=== PATIENT | male | born 2005 | race Caucasian/White ===

== ENCOUNTER 2024-08-11 10:07 | Emergency (ER) | payer OTHER, SELFPAY ==
--- NOTE | ~2024-08-11 | XR_ITS ---
Exam: Abdomen 1V HISTORY: diarrhea, ABD cramping COMPARISON: None. TECHNIQUE: Supine images of the abdomen FINDINGS: Bowel gas pattern within the abdomen is unremarkable. Abnormal gas pattern within the deep pelvis, possibly associated with patient's symptoms. There is no free air or deep sulci. No pathologic calcifications are seen. Lung bases are unremarkable. Bones and soft tissues are unremarkable. IMPRESSION: Abnormal bowel gas pattern within the deep pelvis, as detailed above. Reviewed, dictated and finalized at location A.
[2024-08-11 10:15] VITALS: BP 134/81; PULSE 83; RESP 18; TEMP 36.8; O2SAT 100
--- NOTE | 2024-08-11 10:32 | ED_ITS ---
HPI - Abdominal Pain General Chief Complaint: Abdominal Pain Stated Complaint: Abdominal Discomfort Time Seen by Provider: 08/11/24 10:32 Source: patient Mode of arrival: ambulatory Limitations: no limitations History of Present Illness HPI narrative: 19-year-old male presents with complaint of diarrhea for 3 days. Reports intermittent abdominal cramping. Abdominal cramping mostly bright before having a bowel movement. reports bowel movements after eating or when more active and up and moving about. Reports 8 bowel movements the 1st day 6 bowel movements yesterday and 3 bowel movements today. Drinking plenty fluids. No abdominal pain at this time. Patient reports that he cooked himself some to [employer] a and is concerned for parasites . All systems reviewed and negative except as noted above. Related Data Home Medications ?Medication ?Instructions ?Recorded ?Confirmed ?Last Taken ?Type No Home Medications 08/11/24 08/11/24 Unknown History Allergies Allergy/AdvReac Type Severity Reaction Status Date / Time lotions Allergy Intermediate Rash Uncoded 08/11/24 10:30 Review of Systems Review of Systems: CONSTITUTIONAL: Denies fever, chills, or sweats. EYES: Denies visual changes, redness, or discharge. ENT: Denies rhinorrhea, congestion, sore throat, or otalgia. CARDIOVASCULAR: Denies chest pain, palpitations, or edema. RESPIRATORY: Denies cough or dyspnea. GASTROINTESTINAL: Reports abdominal pain, diarrhea. Denies nausea, vomiting GENITOURINARY: Denies dysuria or hematuria. SKIN: Denies rash or itching. MUSCULOSKELETAL: Denies back pain, joint pain, or myalgia. NEUROLOGIC: Denies headache, numbness, or weakness. PSYCHIATRIC: Denies anxiety or depression. All other systems reviewed are negative, except as documented in HPI. PMFSH Comments At time of signature, agree with nursing past medical, surgical, social and family history. There is no relevant family history pertinent to the presenting complaint. Exam Narrative: GENERAL: This is a well-nourished, well-developed patient, in no apparent distress. HEAD: normocephalic, atraumatic. EYES: PERRL. Sclera clear/white. Vision is grossly intact. EARS: External ears normal NOSE: External nose normal NECK: Neck supple, non-tender without lymphadenopathy, masses or thyromegaly. CARDIOVASCULAR: Regular rate and rhythm without murmurs, gallops, or rubs. RESPIRATORY: Clear to auscultation. Breath sounds equal bilaterally. No wheezes, rales, or rhonchi. GASTROINTESTINAL: Abdomen soft, non-tender, nondistended. Bowel sounds are active. No hepato-splenomegaly, or palpable masses. No guarding. SKIN: warm, Dry, intact with no suspicious lesions or rash, good texture and turgor. NEURO: awake, alert, and oriented to person, place and time. There were no obvious focal neurologic abnormalities. EXTREMITIES: No joint tenderness, effusion, or edema noted. Course Course Level of Care: Express Care Visit Vital Signs Vital signs: Vital Signs Temperature 36.8 C 08/11/24 10:15 Pulse Rate 83 08/11/24 10:15 Respiratory Rate 18 08/11/24 10:15 Blood Pressure 134/81 08/11/24 10:15 Pulse Oximetry 100 08/11/24 10:15 Oxygen Delivery Room Air 08/11/24 10:15 Temperature 36.8 C 08/11/24 10:15 Pulse Rate 83 08/11/24 10:15 Respiratory Rate 18 08/11/24 10:15 Blood Pressure 134/81 08/11/24 10:15 Pulse Oximetry 100 08/11/24 10:15 Oxygen Delivery Room Air 08/11/24 10:15 reviewed Transfer Transfered to: [facility] Transportation: Other (private car) Transfer rationale: KUB abnormal bowel gas pattern deep pelvis per radiologist, transferring to ER for CT scan Accepting physician: Dr. Alvarez MDM - Abdominal Pain MDM Narrative Medical decision making narrative: transferring pt to ER for rule out obstruction/perforation. abnormal bowel gas pattern on KUB. pt is well appearing, nontoxic. Please be advised this is a medical document. It is intended for [id number]-ohko communication. It is written in medical language and may contain unfamiliar abbreviations or verbiage. Medical documents are intended to carry relevant information, facts as evident, and the clinical opinion of the practitioner at the time of the encounter. This report may have been done utilizing a voice recognition system. Attempts have been made to correct errors. However, there may be uncorrected grammatical, spelling, and recognition errors present. The file time of this note does not necessarily represent the time of service. Differential Diagnosis Differential diagnosis: Likely abdominal pain, constipation and small bowel obstruction Imaging Data Radiologist's impression: ITS Impressions Abdomen X-Ray 08/11/24 11:22 IMPRESSION: Abnormal bowel gas pattern within the deep pelvis, as detailed above. Discharge Plan Discharge Clinical Impression: Diarrhea Patient Disposition: Acute Care Hospital Condition: Stable Additional Instructions: GO DIRECTLY TO [facility] ER. DO NOT HAVE ANYTHING TO EAT OR DRINK. Patient Language: Eritrean Prescriptions: No Action No Home Medications Follow-up/Referrals: PHYSICIAN,SENIOR INSTRUCTOR [Primary Care Provider] - Stand Alone Forms: Work/School Release IP Time of Disposition: 11:37
--- NOTE | 2024-08-11 11:53 | PC.NURSE ---
initially stated was unable to go to er for further evaluation. is waiting to speak with employer. mother at bedside and pt will notify staff upon decision.
== END 2024-08-11 12:10 | disposition short-term general hospital (02) ==
PROVIDERS: Emergency Provider Nurse Practitioner Family
DX: R19.7 Diarrhea, unspecified (principal)
CPT/HCPCS: 74018; 99203; G0463

== ENCOUNTER 2024-09-09 18:58 | Emergency (ER) | payer OTHER, SELFPAY ==
--- OUTSIDE RECORDS SUMMARY | 2024-09-09 19:00 | XMS_ITS | Clinical Summary ---
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 Machine Operator Name Role Phone Provider, None Primary Care Provider Unavailabl e Allergies No known active allergies Medications No known medications Encounters Date Type Department Care Team Description 08/11/2024 1:14 PM CDT - 08/11/2024 3:42 PM CDT Emergency [facility] Emergency [address] [place] [address] Myra Abdul MD Diarrhea, unspecified type Discharge Disposition: Discharged to home or Selfcare 08/11/2024 Travel from Last 3 Months Social History Tobacco Use Types Packs/Day Years Used Date Smoking Tobacco: Never Assessed Sex and Gender Information Value Date Recorded Sex Assigned at Not on file Legal Sex Male 1:04 PM CDT Gender Identity Not on file Sexual Orientation Not on file Last Filed Vital Signs Vital Sign Reading Time Taken Comments Blood Pressure 142/73 08/11/2024 3:37 PM CDT Pulse 72 08/11/2024 3:37 PM CDT Temperature 37 C (98.6 F) 08/11/2024 1:11 PM CDT Respiratory Rate 16 08/11/2024 3:37 PM CDT Oxygen Saturation 99% 08/11/2024 3:37 PM CDT Inhaled Oxygen Concentration - - Weight 74.8 kg (165 lb) 08/11/2024 1:11 PM CDT Height 177.8 cm (5' 10 ) 08/11/2024 1:11 PM CDT Body Mass Index 23.68 08/11/2024 1:11 PM CDT Plan of Treatment Health Maintenance Due Date Last Done Comments Hepatitis C Virus (HCV) Screening 2004 TdaP Immunization 2004 Human Papillomavirus (HPV) Immunization (1 - Male 3-dose series) 01/07/2019 Meningococcal B Immunization (1 of 2 - Standard) 2020 Hepatitis B Immunization (1 of 3 - 19+ 3-dose series) 01/07/2023 SARS-COV-2 Immunization (1 - season) 2024 Influenza Immunization (Seas on Ended) 2025 Respiratory Syncytial Virus (RSV) Immunization (Adult) (1 - 1-dose 75+ series) 01/07/2079 Meningococcal Immunization (ACWY) Aged Out No longer eligible based on patient's age to complete this topic Pneumococcal Immunization Combined Aged Out No longer eligible based on patient's age to complete this topic Rotavirus Immunization Aged Out No lo nger eligible based on patient's age to complete this topic Procedures Procedure Name Priority Date/Time Associated Diagnosis Comments CT ABDOMEN PELVIS W/ CONTRAST Stat with Interpretation 08/11/2024 2:26 PM CDT URINALYSIS REFLEX IF INDICATED BY ABNORMAL RESULTS STAT 08/11/2024 2:20 PM CDT CBC WITH AUTO DIFFERENTIAL STAT 08/11/2024 1:24 PM CDT LIPASE STAT 08/11/2024 1:24 PM CDT CMP (COMPREHENSIVE METABOLIC PANEL) STAT 08/11/2024 1:24 PM CDT COMPLETE BLOOD COUNT (CBC) WITH DIFF STAT 08/11/2024 1:24 PM CDT from Last 3 Months Results * CT ABDOMEN PELVIS W/ CONTRAST (08/11/2024 2:26 PM CDT) Anatomical Region Laterality Modality Abdomen N/A Computed Tomogra phy 08/11/2024 3:00 PM CDT Impressions 08/11/2024 3:02 PM CDT IMPRESSION: No acute finding. Narrative 08/11/2024 3:02 PM CDT EXAM DESCRIPTION: CT ABDOMEN PELVIS W/ CONTRAST REASON FOR STUDY: Abdominal pain TECHNIQUE: CT scan of the abdomen and pelvis performed with intravenous and without oral contrast using helical scanning technique with dynamic intravenous contrast injection. Reconstructed coronal and sagittal MPR images reviewed. All images stored on PACS. Automated exposure control was used as a dose optimization technique for this examination. CONTRAST TYPE/DOSE: 83mL of IOPAMIDOL 76 % IV SOLN injected via Intravenous COMPARISON: None FINDINGS: LOWER CHEST: No significant pulmonary abnormalities. No effusion. LIVER: Normal size. No identified cystic or solid masses. GALLBLADDER: No stones identified. No wall thickening or inflammatory changes. BILE DUCTS: No intrahepatic or extrahepatic ductal dilatation. SPLEEN: Normal size. No focal lesions. PANCREAS: No identified cystic or solid masses. No significant calcifications. No adjacent inflammation or peripancreatic fluid collections. Pancreatic duct not dilated. ADRENALS: Normal. KIDNEYS/URINARY TRACT: No identified significant cystic or solid masses. No visualized stones. No hydronephrosis or hydroureter. Symmetric enhancement. Urinary bladder is unremarkable. GI: No dilated bowel loops. No obvious wall thickening. Normal appendix. No significant diverticular disease. PERITONEUM: No ascites or free air. RETROPERITONEUM: No mass or adenopathy. REPRODUCTIVE: No significant abnormality. VASCULATURE: No abdominal aortic aneurysm. MUSCULOSKELETAL: No significant abnormality. OTHER: No other abnormality. THIS IS AN ELECTRONICALLY VERIFIED FINAL REPORT 08/11/2024 3:00 PM - Electronically signed by Balta Castro M.D. JA: CATA Report ID: [id number] Reading Location: [id number] Procedure Note Balta Castro MD - 08/11/2024 EXAM DESCRIPTION: CT ABDOMEN PELVIS W/ CONTRAST REASON FOR STUDY: Abdominal pain TECHNIQUE: CT scan of the abdomen and pelvis performed with intravenous and without oral contrast using helical scanning technique with dynamic intravenous contrast injection. Reconstructed coronal and sagittal MPR images reviewed. All images stored on PACS. Automated exposure control was used as a dose optimization technique for this examination. CONTRAST TYPE/DOSE: 83mL of IOPAMIDOL 76 % IV SOLN injected via Intravenous COMPARISON: None FINDINGS: LOWER CHEST: No significant pulmonary abnormalities. No effusion. LIVER: Normal size. No identified cystic or solid masses. GALLBLADDER: No stones identified. No wall thickening or inflammatory changes. BILE DUCTS: No intrahepatic or extrahepatic ductal dilatation. SPLEEN: Normal size. No focal lesions. PANCREAS: No identified cystic or solid masses. No significant calcifications. No adjacent inflammation or peripancreatic fluid collections. Pancreatic duct not dilated. ADRENALS: Normal. KIDNEYS/URINARY TRACT: No identified significant cystic or solid masses. No visualized stones. No hydronephrosis or hydroureter. Symmetric enhancement. Urinary bladder is unremarkable. GI: No dilated bowel loops. No obvious wall thickening. Normal appendix. No significant diverticular disease. PERITONEUM: No ascites or free air. RETROPERITONEUM: No mass or adenopathy. REPRODUCTIVE: No significant abnormality. VASCULATURE: No abdominal aortic aneurysm. MUSCULOSKELETAL: No significant abnormality. OTHER: No other abnormality. THIS IS AN ELECTRONICALLY VERIFIED FINAL REPORT 08/11/2024 3:00 PM - Electronically signed by Balta Castro M.D. JA: CATA Report ID: [id number] Reading Location: [place] [id number] IMPRESSION: No acute finding. Myra Abdul MD IMG CT ORDERABLES Final Resul t * Urinalysis w/ Reflex (08/11/2024 2:20 PM CDT) SPECIFIC GRAVITY 1.015 1.003 - 1.030 08/11/2024 3:18 PM CDT [facility] URINE PH 6.0 5.0 - 9.0 08/11/2024 3:18 PM CDT [facility] WBC ESTERASE Negative Negative 08/11/2024 3:18 PM CDT [facility] NITRITE Negative Negative 08/11/2024 3:18 PM CDT [facility] PROTEIN, RANDOM URINE Negative Negative 08/11/2024 3:18 PM CDT [facility] URINE GLUCOSE, QUAL Negative Negative 08/11/2024 3:18 PM CDT [facility] URINE KETONES Negative Negative 08/11/2024 3:18 PM CDT [facility] UROBILINOGEN Normal Normal mg/dL 08/11/2024 3:18 PM CDT [facility] URINE BLOOD Negative Negative patito/ul 08/11/2024 3:18 PM CDT [facility] URINALYSIS COLOR Yellow 08/12/19 3:18 PM CDT [facility] URINALYSIS CLARITY Clear 08/11/2024 3:18 PM CDT [facility] Urine URINE SPECIMEN / Unknown Non-Phlebotomy Collection / Unknown 08/11/2024 2:20 PM CDT 08/11/2024 2:56 PM CDT us Myra Abdul MD URINE ORDERABLES Final Result [facility] [address] [place] [address] * (ABNORMAL) CBC with Auto Differential (08/11/2024 1:24 PM CDT) WBC 16.67(H) 4.00 - 12.00 10(3)/mcL 08/11/2024 1:40 PM CDT [facility] RBC 5.16 4.40 - 5.80 10(6)/mcL 08/11/2024 1:40 PM CDT [facility] HEMOGLOBIN (HGB) 15.6 13.0 - 16.5 g/dL 08/11/2024 1:40 PM CDT [facility] HEMATOCRIT (HCT) 46.9 38.0 - 50.0 % 08/11/2024 1:40 PM CDT [facility] MCV 90.9 82.0 - 96.0 fL 08/11/2024 1:40 PM CDT [facility] MCH 30.2 26.0 - 32.0 pg 08/11/2024 1:40 PM CDT [facility] MCHC 33.3 31.0 - 36.0 g/dL 08/11/2024 1:40 PM CDT [facility] PLATELET COUNT 258 140 - 440 10(3)/[facility] 08/11/2024 1:40 PM CDT [facility] RDW 12.1 11.8 - 15.5 % 08/11/2024 1:40 PM CDT [facility] MPV 9.1 8.0 - 12.6 fL 08/11/2024 1:40 PM CDT [facility] NEUTROPHILS 73.0(H) 40.0 - 68.0 % 08/11/2024 1:40 PM CDT [facility] LYMPHOCYTES 15.0(L) 19.0 - 49.0 % 08/11/2024 1:40 PM CDT [facility] MONOCYTES 9.3 3.0 - 13.0 % 08/11/2024 1:40 PM CDT [facility] EOSINOPHILS 2.3 0.0 - 8.0 % 08/11/2024 1:40 PM CDT [facility] BASOPHILS 0.4 0.0 - 1.0 % 08/11/2024 1:40 PM CDT [facility] ABSOLUTE NEUTROPHILS 12.17(H) 1.40 - 5.30 10(3)/mcL 08/11/2024 1:40 PM CDT [facility] ABSOLUTE LYMPHOCYTES 2.50 0.90 - 3.30 10(3)/[facility] 08/11/2024 1:40 PM CDT [facility] ABSOLUTE MONOCYTES 1.55(H) 0.10 - 0.90 10(3)/mcL 08/11/2024 1:40 PM CDT [facility] ABSOLUTE EOSINOPHIL 0.38 0.00 - 0.50 10(3)/[facility] 08/11/2024 1:40 PM CDT [facility] ABSOLUTE BASOPHILS 0.07 0.00 - 0.10 10(3)/[facility] 08/11/2024 1:40 PM CDT [facility] NRBC PER 100 WBC 0 08/12/19 1:40 PM CDT [facility] Blood Venipuncture / Unknown 08/11/2024 1:24 PM CDT 08/11/2024 1:37 PM CDT Myra Abdul MD HEMATOLOGY ORDERABLES Final R esult Performing Organization Address City/[facility]/ZIP Co de Phone Number [facility] [address] [place] [address] * Lipase (08/11/2024 1:24 PM CDT) LIPASE 19 8 - 78 U/L 08/11/2024 1:59 PM CDT [facility] Blood Venipuncture / Unknown 08/11/2024 1:24 PM CDT 08/11/2024 1:37 PM CDT Myra Abdul MD CHEMISTRY ORDERABLES Final Re sult [facility] [address] [place] [address] * (ABNORMAL) CMP (08/11/2024 1:24 PM CDT) SODIUM 139 136 - 145 mmol/L 08/11/2024 1:59 PM CDT [facility] POTASSIUM 3.8 3.5 - 5.1 mmol/L 08/11/2024 1:59 PM CDT [facility] CHLORIDE 106 98 - 107 mmol/L 08/11/2024 1:59 PM CDT [facility] CO2, VENOUS 25 22 - 30 mmol/L 08/11/2024 1:59 PM CDT [facility] ANION GAP 11.8 <18.0 mmol/L 08/11/2024 1:59 PM CDT [facility] GLUCOSE 82 70 - 99 mg/dL 08/11/2024 1:59 PM CDT [facility] BUN 13 9 - 21 mg/dL 08/11/2024 1:59 PM CDT [facility] CREATININE, BLOOD 0.93 0.70 - 1.30 mg/dL 08/11/2024 1:59 PM CDT [facility] BUN/CREATININE RATIO 14 12 - 20 ratio 08/11/2024 1:59 PM CDT [facility] TOTAL PROTEIN 8.6(H) 6.0 - 8.0 g/dL 08/11/2024 1:59 PM CDT [facility] ALBUMIN 4.3 3.5 - 5.0 g/dL 08/11/2024 1:59 PM CDT [facility] A/G RATIO 1.0 1.0 - 2.2 08/11/2024 1:59 PM CDT [facility] CALCIUM 9.0 8.7 - 10.5 mg/dL 08/11/2024 1:59 PM CDT [facility] T BILI 0.3 0.2 - 1.2 mg/dL 08/11/2024 1:59 PM CDT [facility] SGOT (AST) 25 <43 U/L 08/11/2024 1:59 PM CDT [facility] SGPT (ALT) 18 <56 U/L 08/11/2024 1:59 PM CDT [facility] ALKALINE PHOSPHATASE 105 40 - 150 U/L 08/11/2024 1:59 PM CDT [facility] GFR, ESTIMATED >60 >=60 08/11/2024 1:59 PM CDT [facility] Comment: Creatinine Clearance is the preferred criteria for selecting drug dose adjustments in renally impaired patients. The GFR is provided as additional pertinent clinical information. GFR is reported in mL/min/1.73 sq m. Calculation based on the Chronic Kidney Disease Epidemiology Collaboration (CKD- EPI) equation refit without adjustment for race. GFR, EST. >60 >=60 025 1:59 PM CDT [facility] GFR, EST. NONAFRICAN >60 >=60 08/11/2024 1:59 PM CDT [facility] Blood Venipuncture / Unknown 08/11/2024 1:24 PM CDT 08/11/2024 1:37 PM CDT us Myra Abdul MD CHEMISTRY ORDERABLES Final Re sult [facility] [address] [place] [address] from Last 3 Months Insurance [facility] Care Teams Jigger Machine Operator Relationship Specialty Start Date End Date Provider, None [place] PCP - General 08/11/24
[2024-09-09 19:10] VITALS: BP 136/82; PULSE 93; RESP 16; TEMP 37.4; O2SAT 100
--- NOTE | 2024-09-09 19:18 | ED.URI ---
HPI - URI/Sore Throat General Chief Complaint: Upper Respiratory Infection Stated Complaint: sore throat Time Seen by Provider: 09/09/24 19:18 Source: patient, RN notes reviewed and old records reviewed Mode of arrival: ambulatory Limitations: no limitations History of Present Illness HPI Narrative: 19-year-old male presents to the [facility] with complaints of a sore throat for 5 days. Reports postnasal drainage patient denies any ear pain, sinus drainage. Did take some Tylenol. Denies fevers, chest pain. Related Data Home Medications ?Medication ?Instructions ?Recorded ?Confirmed ?Last Taken ?Type No Home Medications 08/11/24 08/11/24 Unknown History Allergies Allergy/AdvReac Type Severity Reaction Status Date / Time lotions Allergy Intermediate Rash Uncoded 09/09/24 19:23 Review of Systems Review of Systems: All systems reviewed & are unremarkable except as noted in HPI and below Constitutional: Constitutional: Reports no additional constitutional complaints ENT: Reports as per HPI and Reports sore throat Cardiovascular: Cardiovascular: Reports no additional cardiovascular complaints, Denies chest pain and Denies dyspnea Respiratory: Respiratory: Reports no additional respiratory complaints, Denies chest congestion, Denies cough and Denies dyspnea Musculoskeletal: Musculoskeletal: Reports no additional musculoskeletal complaints Integumentary/Breasts: Skin/Breast: Reports system reviewed and no additional complaints, except as docu PMFSH Comments At the time of my signature, I reviewed and agree with the nursing past medical, surgical, social, and family history. There is no relevant family history pertinent to the patient complaint. Exam Const: General: cooperative, healthy appearing, comfortable, no acute distress, well developed, alert and well nourished Nutritional Appearance: well nourished Orientation/consciousness: patient oriented x3 Limitations: no limitations HENMT: Head: normal to inspection Ears: hearing grossly normal bilaterally, external ears normal, TM's normal bilaterally, EAC's normal, mastoids normal and no periauricular adenopathy Face/Nose/Sinus: Normal external nose present, Normal nares present, No nasal polyps present and No nasal discharge present Mouth: Yes Normal oral and palatal mucosa present, Yes lip normal, Yes tongue normal and Yes moist mucous membranes Throat: posterior oropharynx normal, uvula midline, postnasal drainage and no uvular edema Eyes: General: appearance normal, both eyes and all related structures Alignment and Position: alignment normal Neck: Neck: normal visual inspection, full ROM, no lymphadenopathy and no meningeal signs Chest: Chest palpation & inspection: normal inspection of the chest Resp: Effort & Inspection: normal respiratory effort and able to speak in complete sentences Auscultation: clear to auscultation bilaterally, no crackles, no rales, no rhonchi and no wheezes Cardio: Rate: regular rate Skin: General skin exam: normal color and no rashes or lesions noted Neuro: General: patient oriented x3, gait normal, moves all extremities and no meningeal signs Cognition (Neuro): normal cognition Speech: normal speech Gait exam (Neuro): Normal gait present Extrem: General: normal to inspection, full ROM, capillary refill normal and normal gait Psych: Appearance: grossly normal and well kempt Mental Status: mental status grossly normal Speech and movement: Normal speech and movement present and Clear speech present Affect: normal affect Attitude: cooperative Course Course Level of Care: Express Care Visit Vital Signs Vital signs: Vital Signs Temperature 99.3 F 09/09/24 19:10 Pulse Rate 93 09/09/24 19:10 Respiratory Rate 16 09/09/24 19:10 Blood Pressure 136/82 09/09/24 19:10 Pulse Oximetry 100 09/09/24 19:10 Oxygen Delivery Room Air 09/09/24 19:10 Temperature 99.3 F 09/09/24 19:10 Pulse Rate 93 09/09/24 19:10 Respiratory Rate 16 09/09/24 19:10 Blood Pressure 136/82 09/09/24 19:10 Pulse Oximetry 100 09/09/24 19:10 Oxygen Delivery Room Air 09/09/24 19:10 Reviewed MDM - URI/Sore Throat MDM Narrative Medical decision making narrative: Patient sitting in exam room. Nontoxic, vitals stable. Patient presents with 5 day history of sore throat, postnasal drainage noted, no erythema. Strep test negative, will culture. Patient appropriate for outpatient treatment with close follow-up Discharge instructions reviewed with patient, as well as provided in writing per nursing staff. The instructions also include specific and strict return/GO TO THE ER as well as f/u information. All questions have been answered, and the patient deny any further questions with discharge and discharge plan. Some parts of this dictation were generated by voice recognition software and may contain typographical and/or grammatical inaccuracies. Differential Diagnosis Differential diagnosis: Likely upper respiratory infection, otitis media, sinusitis, viral infection and pharyngitis Lab Data Labs: Lab Results 09/09/24 Range/Units 19:18 POC Grp A Strep Screen Negative (Negative) Reviewed Critical Care Time Critical Care Time Critical Care Time: No Discharge Plan Discharge Clinical Impression: Pharyngitis, Post-nasal drainage Patient Disposition: Home Condition: Stable Instructions: Antibiotic Form, Pharyngitis (ED), Postnasal Drip (DC) Additional Instructions: Your rapid strep swab was negative today at [facility]. A throat culture will be sent to the laboratory for further testing. If the test is positive, you will receive a phone call within 48 hours and an appropriate antibiotic will be initiated at that time. It is very important to treat your symptoms. Drink plenty of water, Gatorade, Pedialyte, ice pops or Jell-O. -Alternate Tylenol and Motrin per package directions for fever or pain. You can alternate every 4 hours -Antihistamine medication such as Zyrtec/Claritin/Lexy during the day can help improve symptoms. -doing daily nasal irrigations can help relieve pressure your sinuses. Things like a Neti pot -Use Flonase twice a day for 5 days then daily to help reduce the inflammation and dry up your sinuses. -You can also use Mucinex. Be sure to drink plenty of water with this medication at least 8 ounces with every dose and it is important to drink 8 to 10 glasses of water per day. Water is a natural decongestant -Eat and drink things that are easy to swallow, like tea or soup, or popsicles. -Oral rinses such as: Salt water gargles and/or may use topical anesthetic (eg. Chloraseptic spray) or lozenges to relieve dryness or throat pain). -Frequent hand washing or hand wrapper operator is one of the best ways to prevent spread of infection. -Using a vaporizer or humidifier at night will also help thin secretions and help with coughing up phlegm. -Follow up with primary care provider in 7-10 days if condition is not improving - For new or worsening symptoms go directly to the nearest ER Patient Language: Bangladeshi Prescriptions: No Action No Home Medications Follow-up/Referrals: PHYSICIAN,VAULT MANAGER [Primary Care Provider] - Stand Alone Forms: Work/School Release IP Time of Disposition: 19:31
[2024-09-09 19:29] LABS: EDSTREPNEGPOS1 Negative (Negative)
== END 2024-09-09 19:35 | disposition home or self-care (01) ==
PROVIDERS: Emergency Provider Nurse Practitioner
DX: J02.9 Acute pharyngitis, unspecified (principal); R09.82 Postnasal drip
CPT/HCPCS: 87081; 87880; 99213; G0463